=== PATIENT | male | born 1990 ===

== ENCOUNTER 2022-02-25 15:12 | Emergency (ER) | payer SELFPAY ==
[~2022-02-25] VITALS: Ht 192 cm; Wt 109.0 kg
--- NOTE | 2022-02-25 15:47 | ED Headache ---
General Chief Complaint: Head/Cervical Problems Stated Complaint: HEADACHES FEVER BLURRY VISION Nursing Triage Note: PT STATES HEADACHE FOR 2 WEEKS OFF AND ON FOR NO REASON. TODAY IS THE WORSE. HAS BEEN TO [facility] ONE TIME FOR THE SAME Source: patient Exam Limitations: no limitations History of Present Illness Date Seen by Provider: Feb 25, 2022 Time Seen by Provider: 15:35 Initial Comments Patient is a 31 yo M who presents to the ED with headache and blurred vision intermittently over the last 2 weeks. Pt was seen at a walk-in clinic ~1 week ago and was given an injection that markedly improved the pain. The symptoms were improved for 3-4 days before returning. Patient denies vision loss, d izziness, focal weakness/numbness. He has had no medications today for the symptoms. No recent head trauma. Timing/Duration: 1/2 hour Allergies and Home Medications Allergies Coded Allergies: No Known Drug Allergies (Unverified , 02/25/22) Patient Home Medication List Home Medication List Reviewed: Yes Prochlorperazine Maleate (Compazine) 10 Mg Tablet, 10 MG PO Q8H PRN for HEADACHE Prescribed by: Stewart Gao on 02/25/22 1641 Review of Systems Review of Systems Constitutional: no symptoms reported Eyes: No Symptoms Reported Ears, Nose, Mouth, Throat: no symptoms reported Respiratory: no symptoms reported Cardiovascular: no symptoms reported Gastrointestinal: no symptoms reported Genitourinary: no symptoms reported Musculoskeletal: no symptoms reported Skin: no symptoms reported Psychiatric/Neurological: No Symptoms Reported Past [id number] Hx Patient Social History Tobacco Use?: No Substance use?: No Alcohol Use?: No Immunizations Up To Date Second COVID19 Vaccination Mike: YES 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 oz. kg; 29.00 BMI Method: General Appearance: WD/WN, no apparent distress HEENT: PERRL/EOMI, normal ENT inspection, TMs normal, pharynx normal Neck: non-tender, full range of motion Cardiovascular: regular rate, rhythm Respiratory: chest non-tender, lungs clear Gastrointestinal: normal bowel sounds, non tender Back: normal inspection Extremities: normal range of motion Skin: normal color, warm/dry Progress/Results/Core Measures Results/Orders My Orders Orders - STEWART GAO APRN Iv/Invasive Line Insertion .IV INSERT (02/25/22 15:48) Ketorolac Injection (Toradol Injection) (02/25/22 16:00) Prochlorperazine Injection (Compazine In (02/25/22 16:00) Dexamethasone Injection (Decadron Injec (02/25/22 16:00) Ns Iv 1000 Ml (Sodium Chloride 0.9%) (02/25/22 16:00) Medications Given in ED Current Medications Medications Dose Ordered Sig/Jaycee Route Start Time Stop Time Status Last Admin Dose Admin Dexamethasone Sodium Phosphate 6 mg ONCE ONCE IV 02/25/22 16:00 02/25/22 16:01 DC 02/25/22 16:14 6 MG Ketorolac Tromethamine 30 mg ONCE ONCE IVP 02/25/22 16:00 02/25/22 16:01 DC 02/25/22 16:14 30 MG Prochlorperazine Edisylate 10 mg ONCE ONCE IV 02/25/22 16:00 02/25/22 16:01 DC 02/25/22 16:14 10 MG Vital Signs/I&O 02/25/22 02/25/22 02/25/22 15:30 16:14 17:24 Temp 36.1 36.1 36.1 Pulse 63 63 Resp 18 18 B/P (MAP) 138/75 (96) 131/69 Pulse Ox 97 97 Blood Pressure Mean: 96 Progress Progress Note : Progress Note Patient is nontoxic and well hydrated on exam. No focal neurologic deficits noted. Vital signs are reassuring. No indication for cross sectional imaging of the head at this time. Pt does endorse photophobia. No nuccal rigidity noted. Patient was given a migraine cocktail with near resolution of the pain. Will d/c home with recs for supportive care and follow-up with PCP for persistent symptoms. Return precautions for urgent symptomology discussed. Patient verbalized understanding. Departure Impression Primary Impression: Headache Qualified Codes: R51.9 - Headache, unspecified Disposition: HOME, SELF-CARE Condition: Improved Departure-Patient Inst. Decision time for Depature: 16:35 Patient Instructions: Headache, Adult (DC) Add. Discharge Instructions: Follow-up with your regular doctor next week if the headaches return. All discharge instructions reviewed with patient and/or family. Voiced understanding. Scripts Prochlorperazine Maleate (Compazine) 10 Mg Tablet 10 MG PO Q8H PRN for HEADACHE for 7 Days, #15 TAB 0 Refills Prov: STEWART GAO APRN 02/25/22 STEWART GAO APRN Feb 25, 2022 15:47
[2022-02-25] MEDS ORDERED: PROCHLORPERAZINE 10 MG/2ML INJ (COMPAZINE) IV ONE (16:00)
[2022-02-25] MEDS ORDERED: KETOROLAC 30 MG/ML VIAL IVP ONE (16:00)
[2022-02-25] MEDS ORDERED: NS IV 1000 ML 1,000 ML IV SCH (16:00)
[2022-02-25] MEDS ORDERED: PROC-1 PO (16:41)
[2022-02-25 17:24] VITALS: BP 131/69
== END 2022-02-25 17:24 | disposition home or self-care (01) ==
LOC: ER 15:15
DX: R51.9 Headache, unspecified (principal)